=== PATIENT | male | born 1975 ===

== ENCOUNTER → 2022-12-03 07:35 | Outpatient (CLI) | payer OTHER, SELFPAY ==
--- NOTE | 2022-12-04 11:13 | DI.NM.S_ITS ---
DATE OF SERVICE: 12/03/2022 PROCEDURE: Exercise treadmill stress test without imaging. ORDERING PROVIDER: Efrem Chau MD INDICATIONS: The patient is a 47-year-old hypertensive male with recent atypical chest discomfort and anxiety. FINDINGS: 1. The patient was able to exercise for 9 minutes and 1 second on a standard Carlos protocol suggesting mild-moderately reduced exercise capacity with an SANTO of +16%, achieving 10.1 METS. 2. He had a normal heart rate and blood pressure response to exercise, achieving a maximum heart rate of 175 BMP (101% of his predicted maximum). 3. He had no chest discomfort or other anginal symptoms. 4. His resting ECG showed sinus rhythm with occasional PVCs and normal ST segments. There were no significant ST-segment shifts or arrhythmias with exercise except for increasingly frequent PACs and PVCs, the latter occasionally in a bigeminal pattern and rarely in couplets, but improving at peak exercise. There was no other complex ectopy. IMPRESSION: 1. Normal exercise treadmill study for ischemia. 2. Mild-moderately reduced exercise capacity without angina. 3. Occasional PACs and PVCs with significant ventricular ectopy with exercise with transient ventricular bigeminy and rare ventricular couplets, but improving at peak exercise without any other complex ectopy. Ralph Woodruff - BALBIR/jeancarlos/JERICOH doc#: [id number]/job#: [id number] dd: 12/03/2022 16:52:00 dt: 12/03/2022 22:13:00 DICTATING MD/COPIES TO: Efrem Burroughs MD; Efrem Chau MD COPIES MNE: RO;
== END ==
PROVIDERS: PCP Family Medicine; Referring Provider Family Medicine; Visit Provider Family Medicine
DX: R07.89 Other chest pain (principal)
CPT/HCPCS: 93017